=== PATIENT | female | born 1960 | race African-American/Black ===

== ENCOUNTER → 2020-12-01 | Outpatient (CLI) | payer OTHER ==
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
== END ==
LOC: RAD 11:41
PROVIDERS: ATTEND Surgery
DX: Z02.71 Encounter for disability determination (principal); M25.511 Pain in right shoulder; M25.761 Osteophyte, right knee; M25.78 Osteophyte, vertebrae; M47.816 Spondylosis without myelopathy or radiculopathy, lumbar region; M48.061 Spinal stenosis, lumbar region without neurogenic claudication
CPT/HCPCS: 72100; 73560